=== PATIENT | female | born 2000 | race Caucasian/White ===

== ENCOUNTER 2018-12-12 00:18 | Emergency (ER) | payer OTHER, SELFPAY ==
[2018-11-02 15:39] VITALS: BMI 23.8
[2018-12-12 00:19] VITALS: BP 117/72; PULSE 67; RESP 16; TEMP 36.6; O2SAT 96; BMI 23.5
--- NOTE | 2018-12-12 01:46 | US_ITS ---
STUDY: ULTRASOUND OF THE FEMALE PELVIS - COMPLETE REASON FOR EXAM: Female, 18 years old. Left-sided pain. History of left tubo-ovarian abscess on antibiotics. Recurrent left sided pain. TECHNIQUE: Transvaginal. TECHNICAL QUALITY: Adequate. COMPARISON: None. FINDINGS: The uterus is retroverted and is in a midline position. The uterus measures 5.8 x 5.2 x 3.1 cm. Normal uterine cervix. The endometrium measures 3 mm in thickness, and is hyperechoic. There is no demonstrated endometrial mass. There is no demonstrated myometrial mass. I.U.D. - The patient does have an I.U.D. The right ovary is visualized. The right ovary measures 4.2 x 2.6 x 1.8 cm. Multiple follicles. There is no visualized right adnexal mass or complex lesion. There is normal arterial and normal venous vascularity. The left ovary is visualized. The left ovary measures 3.9 x 2.3 x 1.7 cm. Multiple follicles. There is no visualized left adnexal mass or complex lesion. There is normal arterial and normal venous vascularity. Tubular nonvascular structure left adnexa measuring 1.4 cm in length suggestive of a dilated fallopian tube. There is minimal fluid in the cul-de-sac. US/Transvaginal Non- IMPRESSION: Dilated left fallopian tube. Minimal free fluid in the cul-de-sac which is a nonspecific finding often related to rupture of an ovarian cyst. No left adnexal mass to suggest a tubo-ovarian abscess. Consider CT of the abdomen and pelvis if there is a high clinical suspicion of an acute abdominal process. Electronically Signed: Michael Clark MD at 3:26 EDT , Service support ,
[2018-12-12 02:18] VITALS: BP 117/72; PULSE 67; RESP 16; TEMP 36.6; O2SAT 96
[2018-12-12 02:23] LABS: Red Blood Cells-Urine 0 SEEN /hpf (0-5)
[2018-12-12 02:28] LABS: Color, Urine Yellow (Yellow); Glucose, Dipstick Normal (Normal); Ketone-Dipstick Negative (Negative); Leukocyte Esterase-Dipstick Negative /ul (Negative); Nitrite-Dipstick Negative (Negative); Occult Blood-Urine Negative /ul (Negative); Protein-Dipstick Negative (Negative); Urine Bilirubin Dipstick Negative (Negative); Urine Clarity Sl. Cloudy (Clear); Urine Urobilinogen Normal (Normal); Urine pH 6.5 (5.0 - 8.0)
[2018-12-12 02:28] LABS: Absolute Lymphocyte Count 2.18 X10^3/ul (0.83-4.51); Absolute Neutrophil Count 2.5 X10^3/uL (2.0-7.7); Basophil# 0.02 X10^3/uL; Basophil% 0.4 % (0-1); Eosinophil# 0.09 X10^3/uL; Eosinophils% 1.8 % (0-5); Hematocrit 38.3 % (37-47); Lymphocyte # 2.18 X10^3/ul (4.0); Lymphocyte % 42.4 % (19-41); Mean Corp Hgb Conc 33.9 g/gl (32-36); Mean Corpuscular Hgb 29.7 pg (27.0-32.0); Mean Corpuscular Volume 87.6 fL (81-99); Mean Platelet Vol. 10.5 fl (6.2-12.0); Monocyte# 0.36 X10^3/uL; Neutrophil # 2.49 X10^3/uL (2.7-7.7); Neutrophil % 48.4 % (47-70); Platelet Count 239 K/mm3 (150-450); RBC Distribution Width CV 12.4 % (11.6-14.6); RBC Distribution Width SD 38.7 fl (35.1-43.9); Red Blood Count 4.37 M/mm3 (4.2-5.4); White Blood Count 5.1 K/mm3 (4.4-11.0)
[2018-12-12 02:29] LABS: POSITIVE COUNT NO; POSITIVE DIFFERENTIAL NO; POSITIVE MORPHOLOGY NO
[2018-12-12 02:30] LABS: Internal QC Validated? YES +Cl - CLEAR BKGD; Pregnancy, Urine Negative Negative
[2018-12-12 02:33] LABS: Bacteria 1+ /hpf (None Seen); Mucous, Urine 1+ /hpf (<or=2+); Squamous Epithelial Cells - UA 5-10 SEEN /hpf (5-10)
[2018-12-12 02:34] LABS: White Blood Cells 0-5 SEEN /hpf (0-5)
[2018-12-12 02:40] LABS: Anion Gap 4 (5-15); BUN 19 mg/dL (7-18); BUN/Creat Ratio 21.9 RATIO (10-20); Calcium,Total 8.8 mg/dL (8.5-10.1); Chloride 105 mmol/L (98-107); Creatinine, Serum 0.87 mg/dL (0.55-1.02); EST Glomerular Filtration Rate 88 mL/min (>60); Est Glom Filt Rate - Afr Amer 106 mL/min (>60); Estimated Creatinine Clearance 89.07 ml/min; Glucose 86 mg/dL (74-106); Potassium 3.8 mmol/L (3.5-5.1); Sodium Level 140 mmol/L (136-145)
--- NOTE | 2018-12-12 03:39 | ED.DCSUM_ITS ---
- ER Visit Summary Date of Service: 12/12/18 Chief Complaint: Abdominal pain History of Present Illness: The patient is a 18 F who presents with left-sided abdominal/pelvic pain. She was recently treated for a tubo-ovarian abscess last month. She was just treated with antibiotics and did not require any surgical intervention. She has been doing better up until a couple of days ago. Her pain returned about 2 days ago. She complains of mild sharp left lower pelvic pain. She currently rates it as a 2 out of 10. She also has developed some recurrent vaginal discharge. No fevers. No vomiting. Physical Examination: Afebrile vitals normal No distress Moist mucous membranes Heart regular rate and rhythm Lungs are clear Abdomen soft nontender Alert Test Results: CBC BMP unremarkable. Urinalysis normal. negative. Ultrasound of the pelvis shows a dilated left fallopian tube minimal free fluid in the cul-de-sac no obvious adnexal mass. Emergency Department Course and Treatment: I discussed the above findings with Dr. Sheldon who is on-call for gynecology. He asked that the patient follow-up in the office with one of her partners today. I did give the patient a dose of doxycycline here for possible PID. Patient understands to return for new or worsening symptoms and explained to her that she needs to be seen in the office today. Patient discharged. Treatment Plan: [] Disposition: Discharge Impression: Pelvic pain This note was generated with [employer] dictation software. It may contain incorrect words, spelling, and punctuation that were not noted in review of the chart prior to signing ED Disposition - Plan for ED Patient: Referrals: Darian Duarte MD [Primary Care Provider] -
--- NOTE | 2018-12-12 03:39 | ED.DEP ---
ED Disposition - Plan for ED Patient: Instructions: ED Pelvic Pain [facility] Referrals: Darian Duarte MD [Primary Care Provider] - Kelsey Sheldon [STAFF PHYSICIAN] -
[2018-12-12] MEDS: Doxycycline 100 MG CAPSULE PO (03:46)
[2018-12-12 03:51] VITALS: BP 96/61; PULSE 70; RESP 16; O2SAT 100
== END 2018-12-12 03:52 | disposition home or self-care (01) ==
PROVIDERS: Emergency Provider Emergency Medicine; Family Provider Pediatrics; PCP Pediatrics
DX: R10.2 Pelvic and perineal pain (principal)
CPT/HCPCS: 76830; 80048; 81001; 81025; 85025; 93976; 99285; A4216